=== PATIENT | male | born 1965 | race Caucasian/White ===

== ENCOUNTER → 2019-04-29 14:46 | Outpatient (BNVA) | payer BC, SELFPAY | PROVIDERS: Family Provider Nurse Practitioner Family; PCP Nurse Practitioner Family; Visit Provider Nurse Practitioner Family | DX: J06.9 Acute upper respiratory infection, unspecified (principal); E11.9 Type 2 diabetes mellitus without complications; R05 Cough; M25.569 Pain in unspecified knee | CPT/HCPCS: 36415; 80053; 83036 ==

== ENCOUNTER 2019-10-16 07:45 | Outpatient (CLI) | payer SELFPAY ==
--- NOTE | 2019-10-16 07:53 | XRR_ITS ---
PROCEDURE INFORMATION: Exam: XR Complete Acute Abdomen Series Exam date and time: 10/16/2019 8:18 AM Age: 54 years old Clinical indication: Localized; Right lower quadrant (rlq); Prior surgery; Surgery date: 6+ months; Surgery type: Hernia; Patient HX: Hypoactive bowel sounds. Abdominal pain rlq TECHNIQUE: Imaging protocol: XR complete acute abdomen series, including 2 or more views of the abdomen and a single view chest. COMPARISON: CT abdomen pelvis w con* [id number] 11/03/2015 3:16 PM FINDINGS: Lungs: No acute airspace disease. Pleural space: No pleural effusion. Heart/Mediastinum: Epicardial fat, without cardiomegaly. Gastrointestinal tract: Prominent stool, with paucity of bowel gas. Bones/joints: Mild degenerative change. Soft tissues: Prostate calcifications. XR/XR acute abdomen series [id number] IMPRESSION: 1. No acute airspace or pleural disease. 2. Prominent stool, with paucity of bowel gas.
--- NOTE | 2019-10-16 08:00 | US_ITS ---
WS: [id number] Complete ABDOMINAL ULTRASOUND HISTORY: abdominal pain COMPARISON: None available. Liver: 23.1 cm in length. Markedly enlarged liver. Decreased echogenicity throughout the liver from h epatic steatosis. The entire liver is not very well visualized. No masses or bile duct dilatation kathryn reciated. Gallbladder: Normally distended gallbladder. There is a tiny echogenic focus in the nondependent port ion of the gallbladder which may be a wall calcification or cholesterol crystal. Gallbladder wall thickness: 0.2 cm. Pancreas: Not visualized. CBD: 0.5 cm. Right kidney: 12.7 cm x 5.9 cm x 6.4 cm. Normal size kidney. Simple cyst upper pole measures 2.9 x 2 .1 x 1.7 cm. Left kidney: 14.1 cm x 6.3 cm x 6.6 cm. No mass, cortical thickening or hydronephrosis. Spleen: Normal size and echogenicity. Abdominal aorta and IVC are within normal limits. No ascites. US/US abdomen complete* [id number] IMPRESSION: 1. Marked hepatomegaly and hepatic steatosis. 2. No cholelithiasis. 3. Simple cyst RIGHT kidney.
[2019-10-16 08:59] LABS: Basophils # 0.1 10^3/uL (0.0-0.1); Basophils % 0.8 %; Eosinophils # 0.2 10^3/uL (0.0-0.8); Hematocrit 44.7 % (42.0-52.0); Hemoglobin 14.7 g/dL (11.7-16.6); Lymphocytes # 1.5 10^3/uL (0.8-4.8); Lymphocytes % 20.3 %; Mean Corpuscular HGB Conc 32.9 g/dL (30.0-36.0); Mean Corpuscular Hemoglobin 29.9 pg (28.0-34.0); Mean Corpuscular Volume 90.9 fL (80-94); Mean Platelet Volume 11.1 fL (7.4-10.4); Monocytes # 0.8 10^3/uL (0.2-0.9); Monocytes % 11.3 %; Neutrophils # 4.83 10^3/uL (1.8-7.7); Neutrophils % 64.8 %; Nucleated Red Blood Cells % 0 %; Platelet Count 273 10^3/cmm (130-400); Red Blood Count 4.92 10^6/uL (4.1-5.3); Red Cell Distribution Width 12.9 % (12.1-15.1); White Blood Count 7.5 10^3/uL (4.0-10.0)
[2019-10-16 09:07] LABS: Estmated Average Glucose 166; Hemoglobin A1C 7.4 % (4.0-6.0)
[2019-10-16 10:01] LABS: Alanine Aminotransferase 56 U/L (0-41); Albumin Level 4.2 g/dL (3.5-5.2); Alkaline Phosphatase 58 IU/L (40-130); Anion Gap 20.5 (5-19); Aspartate Amino Transferase 24 U/L (0-40); Blood Urea Nitrogen 13 mg/dL (6-20); Calcium 8.9 mg/dL (8.5-10.5); Carbon Dioxide 21 mmol/L (22-29); Chloride 96 mmol/L (98-107); Chol HDL Ratio 4.33 mg/dL (1.0-5.00); Cholesterol 173 mg/dL (0-200); Glucose 136 mg/dL (65-115); HDL Cholesterol 40 mg/dL (60-100); LDL Cholesterol Calculated 72 mg/dL (50-129); Osmolality Calculated 276 mOsm/kg (285-295); Potassium 3.5 mmol/L (3.5-5.1); Sodium 134 mmol/L (136-145); Thyroid Stimulating Hormone 0.99 uIU/mL (0.27-4.20); Total Bilirubin 0.3 mg/dL (0.15-1.2); Total Protein 7.2 g/dL (6.6-8.7); Triglycerides 305 mg/dL (0-150)
[2019-10-16 10:21] LABS: Bilirubin Urine Neg (NEGATIVE); Blood Urine Neg (Negative); Glucose Urine UA Norm (Normal); Ketones Urine Negative (Negative); Leukocyte Esterase Urine Negative (Negative); Nitrate Urine Negative (Negative); Protein Urine Neg (Negative); Urine Appearance Clear (CLEAR); Urine Color Yellow (Yellow); Urobilinogen Urine Norm (Negative); pH Urine 5 (5-7)
[2019-10-16 10:23] LABS: Add Urine Culture? No; Amorphous Sediment Urine TRACE; Bacteria Urine TRACE; RBC Urine 0-4 /hpf (0-2); Squamous Epithelial Cell Urine 0-4 (0-5); WBC Urine 0-4 /hpf (0-5)
== END 2019-10-16 07:46 | disposition home or self-care (01) ==
PROVIDERS: PCP Nurse Practitioner Family; Visit Provider Nurse Practitioner Family
DX: R10.9 Unspecified abdominal pain (principal); R16.0 Hepatomegaly, not elsewhere classified; K76.0 Fatty (change of) liver, not elsewhere classified; N28.1 Cyst of kidney, acquired
CPT/HCPCS: 74022; 76700; 80053; 80061; 81001; 83036; 84443; 85025

== ENCOUNTER → 2020-03-29 08:57 | Outpatient (BNVA) | payer SELFPAY | PROVIDERS: PCP Nurse Practitioner Family; Visit Provider Nurse Practitioner Family | DX: G89.29 Other chronic pain (principal); E11.9 Type 2 diabetes mellitus without complications; F41.8 Other specified anxiety disorders; J22 Unspecified acute lower respiratory infection; E78.2 Mixed hyperlipidemia | CPT/HCPCS: 80053; 83036 ==

== ENCOUNTER → 2020-04-28 10:44 | Outpatient (BNVA) | payer OTHER, SELFPAY | PROVIDERS: PCP Nurse Practitioner Family; Visit Provider Family Medicine | DX: Z20.822 Contact with and (suspected) exposure to COVID-19 (principal) | CPT/HCPCS: 87635 ==

== ENCOUNTER → 2021-03-29 11:49 | Outpatient (BNVA) | payer SELFPAY | PROVIDERS: PCP Nurse Practitioner Family; Visit Provider Family Medicine | DX: R06.02 Shortness of breath (principal) | CPT/HCPCS: 87400; 87635 ==

== ENCOUNTER → 2021-06-20 14:42 | Outpatient (BNVA) | payer SELFPAY | PROVIDERS: PCP Nurse Practitioner Family; Visit Provider Nurse Practitioner Family | DX: E11.9 Type 2 diabetes mellitus without complications (principal); I10 Essential (primary) hypertension; E55.9 Vitamin D deficiency, unspecified; Z12.5 Encounter for screening for malignant neoplasm of prostate | CPT/HCPCS: 71046; 80053; 80061; 81003; 82306; 83036; 83880; 84443; 85025; G0103 ==

== ENCOUNTER 2021-07-18 15:10 | Outpatient (CLI) | payer SELFPAY ==
[2021-07-18 16:15] LABS: Urine Appearance Clear (CLEAR); Urine Color Yellow (Yellow); pH Urine 5 (5-7)
[2021-07-18 16:16] LABS: Bilirubin Urine Neg (Negative); Blood Urine Neg (Negative); Glucose Urine UA 4+ (Normal); Ketones Urine 1+ (Negative); Leukocyte Esterase Urine Negative (Negative); Nitrate Urine Negative (Negative); Protein Urine Neg (Negative); Specific Gravity, Urine 1.015 (1.005-1.030); Urobilinogen Urine Norm (Negative)
[2021-07-18 16:19] LABS: RBC Urine 0-4 /hpf (0-2); Squamous Epithelial Cell Urine 0-4 /hpf (0-5); WBC Urine 0-4 /hpf (0-5)
[2021-07-18 16:20] LABS: Add Urine Culture? No; Mucus Urine N /hpf; Other Casts Urine N /lpf; Other Crystals Urine N /hpf; Other Sediment, Urine N; Renal Epithelial Cells Urine N /hpf; Uric Acid Crystals Urine N /hpf
== END 2021-07-18 15:11 | disposition home or self-care (01) ==
PROVIDERS: PCP Nurse Practitioner Family; Visit Provider Nurse Practitioner Family
DX: E11.9 Type 2 diabetes mellitus without complications (principal)
CPT/HCPCS: 36415; 81001

== ENCOUNTER → 2021-08-16 15:03 | Outpatient (BNVA) | payer SELFPAY | PROVIDERS: PCP Nurse Practitioner Family; Visit Provider Internal Medicine Pulmonary Disease | DX: G47.30 Sleep apnea, unspecified (principal); T78.40XA Allergy, unspecified, initial encounter; R06.02 Shortness of breath | CPT/HCPCS: 80053; 82785; 83880; 85025; 86003; 86141 ==

== ENCOUNTER 2021-10-25 12:59 | Outpatient (CLI) | payer MEDICARE, SELFPAY ==
--- NOTE | 2021-10-25 14:01 | XR_ITS ---
WS: [id number] Left leg including the tibia and fibula, AP and lateral views, 10/25/2021 Clinical Data: M79.89 - Other specified soft tissue disorders Comparison: None. Findings: No fractures or dislocations are seen. The tibia and fibula are intact. The soft tissues are normal. XR/XR tibia fibula LT 2V [id number] Impression: Negative for left leg fracture.
--- NOTE | 2021-10-25 15:00 | USCV_ITS ---
Sunshine Charles Age: 56 Gender: M : 1965 Exam Date: 10/25/2021 13:20 Ordering Phys: Sourav Cole MD Technologist: Wanda Burrows Exam Location: [facility] [place] Indication: Trauma to lower left leg laterally HISTORY: Trauma to Left lower lateral leg ..below knee PROCEDURES: Venous duplex imaging was performed in only the left lower extremity. The following venous structures were evaluated: common femoral vein, profunda vein, proximal portion of the greater saphenous vein, superficial femoral vein, and the popliteal vein. In addition, the posterior tibial and peroneal trunk were evaluated. Serial compression, augmentation maneuvers, and spectral Doppler flow evaluation were performed. Area of interest on later lower leg studied. Resolving hematoma observed FINDINGS: Normal 2-D Doppler and augmentation and compressibility throughout the lower extremity venous structures. Additional imaging through the proximal calf veins also reveals no thrombus. Limited evaluation of the greater saphenous vein is patent with no thrombus.. Resolving hematoma Lt lower leg laterally. CONCLUSIONS No evidence of left lower extremity DVT. Resolving hematoma in the area of trauma 6.3 x 2.8 x 1.4cm Stephane Drew MD (Electronically Signed) Final Date: 25 October 2021 16:27 S
== END 2021-10-25 13:00 | disposition home or self-care (01) ==
PROVIDERS: PCP Family Medicine; Visit Provider Family Medicine
DX: M79.89 Other specified soft tissue disorders (principal); R07.9 Chest pain, unspecified; R06.00 Dyspnea, unspecified; I10 Essential (primary) hypertension; E78.2 Mixed hyperlipidemia; E11.9 Type 2 diabetes mellitus without complications; Z79.84 Long term (current) use of oral hypoglycemic drugs; G47.30 Sleep apnea, unspecified; R00.0 Tachycardia, unspecified
CPT/HCPCS: 73590; 93005; 93971; 99214

== ENCOUNTER → 2021-11-23 10:39 | Outpatient (BNVA) | payer MEDICARE, SELFPAY | PROVIDERS: PCP Family Medicine; Visit Provider Family Medicine | DX: G89.29 Other chronic pain (principal); E11.40 Type 2 diabetes mellitus with diabetic neuropathy, unspecified; Z12.11 Encounter for screening for malignant neoplasm of colon; M54.9 Dorsalgia, unspecified; I10 Essential (primary) hypertension; E78.2 Mixed hyperlipidemia; K21.9 Gastro-esophageal reflux disease without esophagitis | CPT/HCPCS: 80053; 80061; 83036; 84443; 85025 ==

== ENCOUNTER → 2021-12-06 09:32 | Outpatient (BNVA) | payer MEDICARE, SELFPAY | PROVIDERS: PCP Family Medicine; Visit Provider Internal Medicine Pulmonary Disease | DX: R06.00 Dyspnea, unspecified (principal); T78.40XA Allergy, unspecified, initial encounter; E66.9 Obesity, unspecified; E11.9 Type 2 diabetes mellitus without complications; M79.89 Other specified soft tissue disorders; Z68.41 Body mass index [BMI] 40.0-44.9, adult; Z87.891 Personal history of nicotine dependence; Z77.22 Contact with and (suspected) exposure to environmental tobacco smoke (acute) (chronic); Z57.2 Occupational exposure to dust | CPT/HCPCS: 99214 ==

== ENCOUNTER → 2021-12-07 09:43 | Outpatient (BNVA) | payer MEDICARE, SELFPAY | PROVIDERS: PCP Family Medicine; Visit Provider Surgery | DX: Z12.11 Encounter for screening for malignant neoplasm of colon (principal) | CPT/HCPCS: 99024 ==

== ENCOUNTER → 2022-01-24 09:20 | Outpatient (BNVA) | payer MEDICARE, SELFPAY | PROVIDERS: PCP Family Medicine; Visit Provider Internal Medicine Cardiovascular Disease | DX: I10 Essential (primary) hypertension (principal); E11.9 Type 2 diabetes mellitus without complications; Z79.84 Long term (current) use of oral hypoglycemic drugs; G47.30 Sleep apnea, unspecified; G47.10 Hypersomnia, unspecified; E78.2 Mixed hyperlipidemia; R06.00 Dyspnea, unspecified; Z87.891 Personal history of nicotine dependence | CPT/HCPCS: 99214 ==

== ENCOUNTER → 2022-01-31 11:22 | Outpatient (BNVA) | payer MEDICARE, SELFPAY | PROVIDERS: PCP Family Medicine; Visit Provider Internal Medicine Pulmonary Disease | DX: R06.00 Dyspnea, unspecified (principal); T78.40XA Allergy, unspecified, initial encounter; R22.43 Localized swelling, mass and lump, lower limb, bilateral; E66.9 Obesity, unspecified; E11.9 Type 2 diabetes mellitus without complications; Z57.2 Occupational exposure to dust; Z87.891 Personal history of nicotine dependence; Z68.41 Body mass index [BMI] 40.0-44.9, adult; Z79.84 Long term (current) use of oral hypoglycemic drugs; I10 Essential (primary) hypertension; E78.5 Hyperlipidemia, unspecified | CPT/HCPCS: 99214 ==

== ENCOUNTER 2022-02-07 07:55 | Outpatient (CLI) | payer MEDICARE, SELFPAY ==
--- NOTE | 2022-02-07 08:22 | ECG_ITS ---
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 Interpretive Statements NAME OF STUDY: LEXISCAN SESTAMIBI STRESS TEST INDICATION: Chest Pain, PROCEDURE: At the baseline, the EKG revealed normal sinus rhythm with diffuse T wave changes. The baseline heart was 72 bpm with a blood pressue of 142/82 mm of Hg Lexiscan was infused over a period of 20 seconds. A total of 0.4 milligrams of Lexiscan was infused. The stress phase was continued for a total of 5 minutes. Heart rate at the end of the stress phase was 84 bpm with a blood pressure 129/75 mm of Hg. The EKG at the peak infusion revealed no significant changes. Sestamibi was injected 20 seconds after the Lexiscan infusion. Heart rate at the end of the recovery phase was 83 bpm with a blood pressure of 135/76 mm of Hg. CONCLUSION: 1. No significant EKG changes with the LexiScan infusion 2. No LexiScan induced chest pain or cardiac arrhythmia 3. Normal blood pressure and heart rate response 4. Sestamibi/sestamibi perfusion scan pending; see separate report. Electronically Signed On 02-11-2022 18:16:57 WEEDER THINNER by James Babb M.D. [id number]
--- NOTE | 2022-02-07 08:23 | NMCV_ITS ---
NM [place] perf SPECT r/s* [id number] Sunshine Charles Age: 57 Gender: M : 1965 Exam Date: 02/07/2022 08:23 Ordering Phys: James Babb MD ([email or web address]) Technologist: EZEQUIEL Liriano Exam Location: [facility] Indications: CORONARY ANGIOPLASTY STATUS STRESS TEST Please see separate stress test report in [facility] for full findings IMAGE PROTOCOL Rest/Stress 1 Lexiscan Day Radiopharmaceutical Dose (mCi) Administration Site Administered by Rest: Tc-99m 9.6 IV EZEQUIEL Hdz Sestamibi Stress:Tc-99m 31.5 IV EZEQUIEL Hdz Sestamibi Rest: 07-Feb-2022 60 Discovery 630 Stress: 07-Feb-2022 30 Discovery 630 0.4mg Lexiscan. Images obtained in supine and prone position. SPECT RESULTS Technical Quality: Excellent Raw Data Analysis: Normal Image Corrections: No attenuation or motion correction applied Summed Stress Score: 6 Summed Rest Score: 14 Summed Difference Score: 0 PERFUSION FINDINGS Moderate area of moderately decreased size uptake in the basal and mid inferior, basal inferolateral and apical lateral regions. No significant reversibility was noted of these regions FUNCTIONAL RESULTS (calculated via Gated SPECT) Stress Image LV EF (%): 35 Stress EDV (mL):215 TID: 1.09 Stress ESV (mL):140 FUNCTIONAL FINDINGS: Segmental wall motion analysis revealed moderate diffuse hypokinesia of the left ventricle. IMPRESSIONS 1. Myocardial perfusion imaging revealing moderate area of persistent decreased tracer uptake in the inferior, inferolateral and apical lateral regions, suggestive of myocardial scarring. 2. Moderately diminished LV ejection fraction of 35%. 3. LV wall motion analysis revealing diffuse hypokinesia of the left ventricle 4. Moderately dilated LV cavity with an end-systolic volume of 140 mL No similar previous studies are available for comparison No significant coronary ischemia, based on the above findings Dr James Babb MD FACC (Electronically Signed) Final Date: 07 February 2022 23:30 S
[2022-02-07 09:40] VITALS: BMI 43.2
[2022-02-07] MEDS: regadenoson 0.4 Mg/5 ml Syringe IVP (10:06)
[2022-02-07 10:35] VITALS: BP 135/76; PULSE 81
== END 2022-02-07 07:56 | disposition home or self-care (01) ==
LOC: CDL 08:03
PROVIDERS: PCP Family Medicine; Visit Provider Internal Medicine Cardiovascular Disease
DX: R07.9 Chest pain, unspecified (principal); R06.02 Shortness of breath; Z98.61 Coronary angioplasty status
CPT/HCPCS: 36415; 78452; 93017; 96374; A9500; J2785

== ENCOUNTER 2022-02-09 08:55 | Day surgery (SDC) | payer MEDICARE, SELFPAY ==
[2022-02-08 08:26] VITALS: BMI 41.8
[2022-02-09 09:45] VITALS: BP 160/77; PULSE 46; RESP 20; TEMP 36.5; O2SAT 97
[2022-02-09] MEDS: sodium chloride 0.9% 1,000 ML 30 ML IV (09:57)
--- NOTE | 2022-02-09 10:00 | W.PM.OPSFHP ---
Same Day Surgery H&P Indication for Procedure/HPI DATE OF PROCEDURE: February 09, 2022 CHIEF COMPLAINT/INDICATIONFOR SURGICAL PROCEDURE: Screening colonoscopy PREOP DIAGNOSIS: Screening colonoscopy PLANNED PROCEDURE: Operation Date: 02/09/22 11:00 Proposed Procedures p Colonoscopy 35405,Z12.11(Not Applicable) - Dl Nelson MD This is a pleasant 57 years old gentleman referred to my practice for screening colonoscopy. No personal history of bleeding per rectum or colon polyps or colon cancer yet the patient reports that his brother had colon cancer age of 26 and he had 2 surgeries and unfortunately .. No change in bowel movements and no change in the caliber of the stool. ROS All systems have been reviewed negative except as for the above or per problem list. Medications/Allergies* Home Medications Medication Instructions Recorded Confirmed Type aspirin 81 mg tablet,delayed 81 mg PO DAILY 10/11/21 02/08/22 History release (Adult Low Dose Aspirin) linaclotide 290 mcg capsule 290 mcg PO DAILY PRN Constipation 10/11/21 02/08/22 History (Linzess) doxycycline hyclate 100 mg tablet 100 mg PO BID PRN tick fever 10/25/21 02/08/22 History citalopram 10 mg tablet 20 mg PO DAILY 02/08/22 02/08/22 History furosemide 20 mg tablet 20 mg PO .PRN PRN swelling 02/08/22 02/08/22 History glyburide 5 mg tablet 15 mg PO DAILY 02/08/22 02/08/22 History meloxicam 15 mg tablet 15 mg PO DAILY 02/08/22 02/08/22 History omega-3 acid ethyl esters 1 gram 1 cap PO DAILY 02/08/22 02/08/22 History capsule rosuvastatin 5 mg tablet 5 mg PO DAILY 02/08/22 02/08/22 History sitagliptin 50 mg tablet (Januvia) 50 mg PO DAILY 02/08/22 02/08/22 History tamsulosin 0.4 mg capsule 0.8 mg PO DAILY 02/08/22 02/08/22 History telmisartan 40 mg tablet 40 mg PO DAILY 02/08/22 02/08/22 History metformin 1,000 mg tablet 1,000 mg PO BID 02/09/22 History Allergies/Adverse Reactions Allergy/AdvReac Type Severity Reaction Status Date / Time No Known Allergies Allergy Verified 02/09/22 10:01 Pertinent History/Comorbid Conditions* Medical History (Updated 01/24/22 @ 13:50 by James Babb MD) Bilateral primary osteoarthritis of knee Chronic pain Depression with anxiety DM type 2 (diabetes mellitus, type 2) Erectile dysfunction Essential hypertension GERD (gastroesophageal reflux disease) Hyperlipidemia Lower respiratory tract infection Mixed hyperlipidemia Peripheral edema Prostate cancer screening Shortness of breath Sleep apnea Could not afford CPAP machine Vitamin D deficiency Family History (Updated 10/25/21 @ 11:05 by Jodi Odonnell RN) Diabetes Family/Other Mother CAD (coronary artery disease) Father, Onset Age: 60 CHF & [place] Cancer Family/Other Denies family history of Clotting disorder Dementia Chronic kidney disease (CKD) Suicide Anesthesia complication Bleeding disorder Lung disease Stroke Social History Smoking and tobacco status: former smoker Quit status (tobacco): has quit using tobacco Year quit tobacco: 40 years ago Former quit date comment: 5-6 cigarettes/day or less Second hand smoke exposure: No Smoking risk assessment/counseling performed?: No Alcohol intake: never Desire information about alcohol rehabilitation?: No Counseling given: No Desire information about substance/drug rehabilitation?: No Counseling given: No Pertinent Exam Findings alert, oriented x 3, clear to auscultation bilaterally, regular rate & rhythm and procedure specific exam findings (Abdominal exam nontender nondistended soft/previous scar of umbilical herni) Recommendations Surgery/Procedure today (Colonoscopy with possible biopsy) Other Plans: Plan of care; After thorough history and physical examination and reviewing the chart, plan to perform screening colonoscopy. I discussed with the patient in details the risks,benefits,alternatives and indications.The risk of aspiration, bleeding, soft tissue injury, perforation of the colon ,missed lesions and other potential concomitant complications were explained to the patient in details,also the potential need for Laproscoy/Laparotomy to repair any related complications including but not limited to colectomy and or Closotomy.The patient understood this well and did agree to proceed. Rationale was carefully and clearly discussed with the patient.Appropriate informed consent have been reviewed and signed All questions have been answered and all concerns have been addressed to patient's satisfaction. 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
[2022-02-09 10:05] LABS: Glucose Point of Care 94 mg/dL (70-110)
--- NOTE | 2022-02-09 10:27 | ANES.PREANE2 ---
Pre-Anesthetic Assessment Height/Weight: Height 1.8 m Weight 136.078 kg Temp Pulse Resp BP Pulse Ox O2 Del Method 97.7 F 46 L 20 H 160/77 97 02/09/22 09:45 02/09/22 09:45 02/09/22 09:45 02/09/22 09:45 02/09/22 09:45 02/09/22 09:45 Preop Diagnosis: Screening colonoscopy Operation Date: 02/09/22 11:00 Proposed Procedures p Colonoscopy 65038,Z12.11(Not Applicable) - Dl Nelson MD Was Beta Marcella taken within 24 hours: N/A Last intake: Intake Last Liquid Date 02/08/22 Last Liquid Time 20:00 Last Solid Date 01/28/22 Last Solid Time 17:00 Social Alcohol and Tobacco chews Exam alert, oriented x 3, clear to auscultation bilaterally and regular rate & rhythm History/ROS No significant history except as noted and No significant complaints Pulmonary Exertional Dyspnea, Sleep Apnea and Shortness of Breath CV/HEM Hypertension (EF 35%) None reported Hepatic None reported GI None reported Metabolic Diabetes Mellitus, Hyperlipidemia and Morbid Obesity [facility] [place] Osteoarthritis/DJD Neuropsych None reported Anesthetic Plan ASA status: 4 Anesthesia: Anesthesia Evaluation and MAC Risk of > 500 ml blood loss (7ml/kg in children): No Medications/Allergies Home Medications Medication Instructions Recorded Confirmed Last Taken Type aspirin 81 mg tablet,delayed 81 mg PO DAILY 10/11/21 02/08/22 02/07/22 History release (Adult Low Dose Aspirin) linaclotide 290 mcg capsule 290 mcg PO DAILY PRN Constipation 10/11/21 02/08/22 02/07/22 History (Linzess) doxycycline hyclate 100 mg tablet 100 mg PO BID PRN tick fever 10/25/21 02/08/22 02/07/22 History empagliflozin 25 mg tablet 25 mg PO DAILY #90 tabs 11/14/21 02/08/22 02/07/22 Rx (Jardiance) gabapentin 100 mg capsule 100 mg PO TID #180 caps 11/14/21 02/08/22 02/08/22 Rx semaglutide 0.25 mg or 0.5 mg (2 0.5 mg (0.4 mL) SUBCUT .weekly #6 11/14/21 02/08/22 02/07/22 Rx mg/1.5 mL) subcutaneous pen mL injector (Ozempic) albuterol sulfate 90 mcg/actuation 1 inh inhalation QID PRN shortness 11/21/21 02/08/22 02/07/22 Rx aerosol inhaler of breath or wheezing #8.5 grams budesonide-formoterol HFA 80 1 puff inhalation BID #10.2 grams 12/06/21 02/08/22 02/07/22 Rx mcg-4.5 mcg/actuation aerosol inhaler (Symbicort) alprazolam 0.25 mg tablet 0.25 mg PO BID PRN anxiety #60 tabs 01/22/22 02/08/22 02/07/22 Rx tramadol 50 mg tablet 50 mg PO Q12H PRN pain 30 days #60 01/22/22 02/08/22 02/08/22 Rx tabs metoprolol succinate 25 mg 25 mg PO DAILY #30 tabs 01/24/22 02/08/22 02/07/22 Rx tablet,extended release 24 hr nifedipine 90 mg tablet,extended 90 mg PO DAILY #90 tabs 02/07/22 02/08/22 02/09/22 07:00 Rx release 24 hr citalopram 10 mg tablet 20 mg PO DAILY 02/08/22 02/08/22 02/07/22 History furosemide 20 mg tablet 20 mg PO .PRN PRN swelling 02/08/22 02/08/22 02/07/22 History glyburide 5 mg tablet 15 mg PO DAILY 02/08/22 02/08/22 02/07/22 History meloxicam 15 mg tablet 15 mg PO DAILY 02/08/22 02/08/22 02/07/22 History omega-3 acid ethyl esters 1 gram 1 cap PO DAILY 02/08/22 02/08/22 02/07/22 History capsule rosuvastatin 5 mg tablet 5 mg PO DAILY 02/08/22 02/08/22 02/07/22 History sitagliptin 50 mg tablet (Januvia) 50 mg PO DAILY 02/08/22 02/08/22 Unknown History tamsulosin 0.4 mg capsule 0.8 mg PO DAILY 02/08/22 02/08/22 02/07/22 History telmisartan 40 mg tablet 40 mg PO DAILY 1102/08/22 02/07/22 History metformin 1,000 mg tablet 1,000 mg PO BID 02/09/22 02/07/22 History Allergies Allergy/AdvReac Type Severity Reaction Status Date / Time No Known Allergies Allergy Verified 02/09/22 10:01 Current Medications Generic Name Dose Route Start Last Admin Trade Name Windy PRN Reason Stop Dose Admin Sodium Chloride 1,000 mls @ 30 mls/hr 02/09/22 09:15 02/09/22 09:57 Sodium Chloride 0.9% IV 02/10/22 09:14 30 mls/hr .Q24H ALMA DELIA Administration PFSH Anesthesia Medical History Bilateral primary osteoarthritis of knee Chronic pain Depression with anxiety DM type 2 (diabetes mellitus, type 2) Erectile dysfunction Essential hypertension GERD (gastroesophageal reflux disease) Hyperlipidemia Lower respiratory tract infection Mixed hyperlipidemia Peripheral edema Prostate cancer screening Shortness of breath Sleep apnea Could not afford CPAP machine Vitamin D deficiency Family History Father CAD (coronary artery disease), Onset Age: 60 CHF & [place] Family/Other Cancer Diabetes Mother Diabetes Denies family history of Clotting disorder Dementia Chronic kidney disease (CKD) Suicide Anesthesia complication Bleeding disorder Lung disease Stroke Social History Smoking and tobacco status: former smoker Quit status (tobacco): has quit using tobacco Year quit tobacco: 40 years ago Former quit date comment: 5-6 cigarettes/day or less Second hand smoke exposure: No Smoking risk assessment/counseling performed?: No Alcohol intake: never Desire information about alcohol rehabilitation?: No Counseling given: No Desire information about substance/drug rehabilitation?: No Counseling given: No Data Anesthesia Cardiac Studies: Sestamibi Stress Test (Cardiology) 02/07/22
[2022-02-09 11:15] VITALS: BP 153/90; PULSE 81; RESP 20; TEMP 36.1; O2SAT 92
[2022-02-09 11:24] VITALS: BP 156/89; PULSE 84; RESP 18; O2SAT 94
[2022-02-09 11:33] VITALS: BP 137/76; PULSE 78; RESP 18; O2SAT 94
--- NOTE | 2022-02-09 12:42 | ANE.PACU2 ---
Inpatient post-anesthesia follow up: Airway intact: Yes Vital signs: Temperature 97 F Pulse Rate 78 Respiratory Rate 18 Blood Pressure 137/76 Pulse Oximetry 94 Oxygen Delivery Me thod Room Air Oxygen Flow Rate 5 Fraction of Inspir ed Oxygen Hydration adequate: Yes Nausea and vomiting: No Pain level: 1 Mental status: Baseline
== END 2022-02-09 11:40 | disposition home or self-care (01) ==
PROVIDERS: PCP Family Medicine; Visit Provider Surgery
PROC: 0DJD8ZZ Inspection of Lower Intestinal Tract, Via Natural or Artificial Opening Endoscopic (ICD-10-PCS; CPT 45378; principal; 2022-02-09 11:00)
DX: Z12.11 Encounter for screening for malignant neoplasm of colon (principal); K57.30 Diverticulosis of large intestine without perforation or abscess without bleeding; Z79.82 Long term (current) use of aspirin; M17.0 Bilateral primary osteoarthritis of knee; E11.9 Type 2 diabetes mellitus without complications; I10 Essential (primary) hypertension; K21.9 Gastro-esophageal reflux disease without esophagitis; E78.2 Mixed hyperlipidemia; G47.30 Sleep apnea, unspecified; Z79.84 Long term (current) use of oral hypoglycemic drugs; Z87.891 Personal history of nicotine dependence
CPT/HCPCS: 36416; 82962; G0121; J7030

== ENCOUNTER 2022-02-14 01:00 | Outpatient (CLI) | payer MEDICARE, SELFPAY | END 2022-02-14 23:00 | disposition home or self-care (01) | LOC: RT 03-26 15:35 | PROVIDERS: PCP Family Medicine; Visit Provider Internal Medicine Pulmonary Disease | DX: J98.9 Respiratory disorder, unspecified (principal) | CPT/HCPCS: J7613 ==

== ENCOUNTER 2022-02-14 06:03 | Outpatient (CLI) | payer MEDICARE, SELFPAY ==
--- NOTE | 2022-02-14 06:15 | USCV_ITS ---
Sunshine Charles Age: 57 Gender: M : 1965 Exam Date: 02/14/2022 06:22 Ordering Phys: James Babb MD ([email or web address]) Technologist: [place] [facility] [place]: short of breath BP: 147 / 91 HR: 80 Rhythm: Sinus Technical Quality: Adequate MEASUREMENTS (Male / Female) Normal Values 2D ECHO LVOT Diameter 2.9 cm LV Ejection Fraction MOD 2C 62.4 % LV Ejection Fraction 2C AL 61.8 % LA Diameter 4.1 cm Aorta at Sinotubular Diameter 3.4 cm IVC Diameter 1.6 cm M-MODE Aortic Annulus Diameter 4.0 cm LA Ao Ratio MM 1.0 MV E Point Septal Separation 1.5 cm DOPPLER AV Peak Velocity 134.0 cm/s LVOT Peak Velocity 81.0 cm/s AV Area Cont Eq vti 4.1 cm squared AV Area Cont Eq pk 3.9 cm squared MV Area PHT 2.7 cm squared Mitral E to A Ratio 0.9 MV E' Velocity 43.0 cm/s Mitral E to MV E' Ratio 9.2 Mitral E to LV E' Lateral Ratio 7.9 Mitral E to LV E' Septal Ratio 11.0 TR Peak Velocity 234.0 cm/s TR Peak Gradient 21.9 mmHg TV Peak E Velocity 102.0 cm/s Right Atrial Pressure 3.0 mmHg Pulmonary Artery Systolic Pressu 24.9 mmHg RV Acceleration Time 0.2 s FINDINGS Left Ventricle Normal left ventricular size and systolic function, EF 56 %. No regional wall motion abnormalities. Grade I/IV diastolic dysfunction (abnormal relaxation filling pattern), normal to mildly elevated filling pressures. Right Ventricle The right ventricle is normal in size and function. Right Atrium The right atrium is normal in size. Left Atrium The left atrium is normal in size. Mitral Valve No gross abnormalities noted. Aortic Valve Echodensities on the noncoronary cusp of the aortic valve, suggesting calcification/healed vegetations. Mild aortic regurgitation Tricuspid Valve Trace tricuspid valve regurgitation. Pulmonic Valve Not visualized well Pericardium Normal pericardium without effusion. Aorta Normal ascending aorta dimension. IVC The inferior vena cava appears normal. CONCLUSIONS Normal left ventricular size and systolic function, EF 56 %. No regional wall motion abnormalities. Grade I/IV diastolic dysfunction (abnormal relaxation filling pattern), normal to mildly elevated filling pressures. Echodensities on the noncoronary cusp of the aortic valve, suggesting calcification/healed vegetations. Mild aortic regurgitation. Trace tricuspid valve regurgitation. Estimated pulmonary artery peak systolic pressure 25 mmHg No similar previous studies are available for comparison Consider LIGIA, to better evaluate the aortic valve abnormalities Dr James Babb MD FACC (Electronically Signed) Final Date: 15 February 2022 07:48 S
== END 2022-02-14 06:04 | disposition home or self-care (01) ==
PROVIDERS: PCP Family Medicine; Visit Provider Internal Medicine Pulmonary Disease
DX: R06.02 Shortness of breath (principal); I08.2 Rheumatic disorders of both aortic and tricuspid valves
CPT/HCPCS: 93306; 94060; 94618; 94726; 94729

== ENCOUNTER → 2022-02-22 15:38 | Outpatient (BNVA) | payer MEDICARE, SELFPAY | PROVIDERS: PCP Family Medicine; Visit Provider Surgery | DX: Z09 Encounter for follow-up examination after completed treatment for conditions other than malignant neoplasm (principal); K57.31 Diverticulosis of large intestine without perforation or abscess with bleeding | CPT/HCPCS: 99212 ==

== ENCOUNTER 2022-03-02 10:02 | Day surgery (SDC) | payer MEDICARE, SELFPAY ==
[2022-03-01 09:30] VITALS: BMI 43.0
--- NOTE | 2022-03-02 10:17 | USCV_ITS ---
Sunshine Charles Age: 57 Gender: M : 1965 Exam Date: 03/02/2022 12:16 Ordering Phys: James Babb MD ([email or web address]) Technologist: KEYA [place] [facility] [place]ication: EVAL FOR VEGTATION BP: 146 / 82 HR: Rhythm: Sinus Technical Quality: Good MEASUREMENTS (Male / Female) Normal Values Medications Patient given IV sedation by anesthesia service, for details please refer to the anesthesia report. Complications None. Proc. Components The patient was brought to the LIGIA examination room in a fasting state after obtaining an informed consent. The LIGIA probe was passed into the posterior pharynx , mid-esophagus and distal esophagus, FINDINGS Left Ventricle Diffuse hypokinesia of the septum with ejection fraction of 45 to 50% Right Ventricle Normal size and ejection fraction Right Atrium Normal size Left Atrium Normal left atrial size. LA Appendage Normal left atrial appendage. Normal flow velocities in the left atrial appendage. IA Septum Normal interatrial septum. No evidence of ASD or patent foramen ovale, based on the color-flow Doppler examination and by saline contrast injection Mitral Valve Trace mitral valve regurgitation. Aortic Valve The aortic valve is found to be tricuspid with the thickening of the leaflet margins mostly in the left coronary and the noncoronary cusp with no masses or vegetations. Mild to moderate aortic regurgitation was noted by color-flow Doppler examination. Tricuspid Valve Trace tricuspid valve regurgitation. Pulmonic Valve No morphologic abnormalities were noted in the valve Pericardium No pericardial effusion. Aorta Aortic root was of normal size. Diffuse plaques where noted in the arch and the descending aorta CONCLUSIONS The aortic valve was found to be tricuspid with thickening of the leaflet margins mostly involving the left coronary and the noncoronary cusps with no masses or vegetations. Mild to moderate aortic regurgitation was noted by color-flow Doppler examination. Mild diffuse hypokinesia of the septum with an LV ejection fraction of 45 to 50% Trace of mitral and tricuspid regurgitation. Intact interatrial septum. No intracardiac masses. Dr James Babb MD FAC (Electronically Signed) Final Date: 02 March 2022 19:58 S
[2022-03-02 10:41] LABS: Glucose Point of Care 124 mg/dL (70-110)
[2022-03-02 10:42] VITALS: BP 159/91; PULSE 68; RESP 18; TEMP 36.3; O2SAT 97
[2022-03-02] MEDS: sodium chloride 0.9% 1,000 ML 30 ML IV (10:56)
--- NOTE | 2022-03-02 11:43 | ANES.PREANE2 ---
Pre-Anesthetic Assessment Height/Weight: Height 1.78 m Weight 136.078 kg Temp Pulse Resp BP Pulse Ox O2 Del Method 97.3 F L 68 18 159/91 97 03/02/22 10:42 03/02/22 10:42 03/02/22 10:42 03/02/22 10:42 03/02/22 10:42 03/02/22 10:42 Preop Diagnosis: Screening colonoscopy Operation Date: 03/02/22 12:00 Proposed Procedures p LIGIA 19666, I33.0, R07.9,E78.2(Not Applicable) - James Babb MD Familial anesthetic complications: none Was Beta Marcella taken within 24 hours: Yes Was Clonidine taken within 24 hours: N/A Last intake: Intake Last Liquid Date 03/01/22 Last Liquid Time 23:59 Last Solid Date 03/01/22 Last Solid Time 19:30 Social Alcohol and No tobacco Exam alert, oriented x 3 and regular rate & rhythm +murmur Airway Submandibular: within normal limits Cervical ROM: within normal limits Mallampati: Class II Dentition: chipped Pulmonary Chronic Obstructive Pulmonary Disease and Sleep Apnea CV/HEM Congestive Heart Failure, Hypertension and Murmur GI Gastroesophageal Reflux Disease Metabolic Diabetes Mellitus, Hyperlipidemia and Morbid Obesity Neuropsych Anxiety, Depression and Neuropathy Anesthetic Plan ASA status: 3 Anesthesia: MAC Medications/Allergies Home Medications Medication Instructions Recorded Confirmed Last Taken Type aspirin 81 mg tablet,delayed 81 mg PO DAILY 10/11/21 03/01/22 02/22/22 History release (Adult Low Dose Aspirin) linaclotide 290 mcg capsule 290 mcg PO DAILY PRN Constipation 10/11/21 03/01/22 02/26/22 History (Linzess) doxycycline hyclate 100 mg tablet 100 mg PO BID PRN tick fever 10/25/21 03/02/22 02/07/22 History empagliflozin 25 mg tablet 25 mg PO DAILY #90 tabs 11/14/21 03/01/22 02/28/22 Rx (Jardiance) gabapentin 100 mg capsule 100 mg PO TID #180 caps 11/14/21 03/01/22 02/28/22 Rx semaglutide 0.25 mg or 0.5 mg (2 0.5 mg (0.4 mL) SUBCUT .weekly #6 11/14/21 03/01/22 02/27/22 Rx mg/1.5 mL) subcutaneous pen mL injector (OzempParkingCarma) albuterol sulfate 90 mcg/actuation 1 inh inhalation QID PRN shortness 11/21/21 03/01/22 02/28/22 Rx aerosol inhaler of breath or wheezing #8.5 grams budesonide-formoterol HFA 80 1 puff inhalation BID #10.2 grams 12/06/21 03/02/22 1 Week Ago Rx mcg-4.5 mcg/actuation aerosol ~02/23/22 inhaler (Symbicort) alprazolam 0.25 mg tablet 0.25 mg PO BID PRN anxiety #60 tabs 01/22/22 03/01/22 03/02/22 06:00 Rx nifedipine 90 mg tablet,extended 90 mg PO DAILY #90 tabs 02/07/22 03/01/22 02/28/22 Rx release 24 hr citalopram 10 mg tablet 20 mg PO DAILY 02/08/22 03/01/22 02/28/22 History glyburide 5 mg tablet 15 mg PO DAILY 02/08/22 03/01/22 02/28/22 History meloxicam 15 mg tablet 15 mg PO DAILY 02/08/22 03/01/22 02/28/22 History omega-3 acid ethyl esters 1 gram 1 cap PO DAILY 02/08/22 03/01/22 02/28/22 History capsule rosuvastatin 5 mg tablet 5 mg PO DAILY 02/08/22 03/01/22 02/28/22 History sitagliptin 50 mg tablet (Januvia) 50 mg PO DAILY 02/08/22 03/01/22 02/28/22 History tamsulosin 0.4 mg capsule 0.8 mg PO DAILY 02/08/22 03/01/22 02/28/22 History telmisartan 40 mg tablet 80 mg PO DAILY 02/08/22 03/01/22 02/28/22 History metformin 1,000 mg tablet 1,000 mg PO BID 02/09/22 03/01/22 02/28/22 History metoprolol succinate 25 mg 25 mg PO DAILY 90 days #90 tabs 02/19/22 03/01/22 02/28/22 Rx tablet,extended release 24 hr tramadol 50 mg tablet 50 mg PO Q12H PRN pain 30 days #60 02/19/22 03/01/22 03/01/22 Rx tabs valacyclovir 1 gram tablet 1,000 mg PO BID 10 days #20 tabs 02/19/22 03/01/22 02/28/22 Rx (Valtrex) furosemide 20 mg tablet 20 mg PO DAILY 03/01/22 03/01/22 02/27/22 History Allergies Allergy/AdvReac Type Severity Reaction Status Date / Time No Known Allergies Allergy Verified 02/24/22 15:02 Current Medications Generic Name Dose Route Start Last Admin Trade Name Windy PRN Reason Stop Dose Admin Sodium Chloride 1,000 mls @ 30 mls/hr 03/02/22 10:30 03/02/22 10:56 Sodium Chloride 0.9% IV 03/03/22 10:29 30 mls/hr .Q24H ALMA DELIA Administration PFSH Anesthesia Medical History Bilateral primary osteoarthritis of knee Chronic pain Depression with anxiety DM type 2 (diabetes mellitus, type 2) Erectile dysfunction Essential hypertension GERD (gastroesophageal reflux disease) Hyperlipidemia Lower respiratory tract infection Mixed hyperlipidemia Peripheral edema Prostate cancer screening Shortness of breath Sleep apnea Could not afford CPAP machine Vitamin D deficiency Family History Father CAD (coronary artery disease), Onset Age: 60 CHF & OR Family/Other Cancer Diabetes Mother Diabetes Denies family history of Clotting disorder Dementia Chronic kidney disease (CKD) Suicide Anesthesia complication Bleeding disorder Lung disease Stroke Social History Smoking and tobacco status: former smoker Quit status (tobacco): has quit using tobacco Year quit tobacco: 40 years ago Former quit date comment: 5-6 cigarettes/day or less Second hand smoke exposure: No Smoking risk assessment/counseling performed?: No Alcohol intake: never Desire information about alcohol rehabilitation?: No Counseling given: No Desire information about substance/drug rehabilitation?: No Counseling given: No Data Anesthesia Cardiac Studies: Echocardiogram 02/14/22 Sestamibi Stress Test (Cardiology) 02/07/22
--- NOTE | 2022-03-02 11:51 | P.HP_ITS ---
Providers/Chief Complaint Admitting Physician: JULIA Babb MD Primary Care Provider: Sourav Cole MD Chief Complaint: Acute and subacute infective endocarditis History of Present Illness Sunshine Charles is a 57 year old male who was initially referred to me for chest pain. This patient has a history of hypertension, dyslipidemia, sleep apnea, type 2 diabetes. He had a Myocardial perfusion imaging which was essentially unremarkable. He had echocardiogram which revealed a normal LV size and ejection fraction. Echodensities were noted on the normal coronary cusp of the aortic valve, suggesting calcifications/healed vegetations. A LIGIA was recommended to better evaluate the aortic valve. He also had mild aortic valve regurgitation. Review of Systems Narrative: CONSTITUTIONAL: No fever or chills. EYES: No blurring of vision or other visual disturbances lately. ENT: No hoarseness of voice, auditory disturbances or sore throat. CARDIOVASCULAR: As mentioned above. RESPIRATORY: No significant cough. GASTROINTESTINAL: No hematemesis or melena. GENITOURINARY: No dysuria or hematuria. INTEGUMENTARY: No skin rashes or history of skin cancer. NEURO: No transient ischemic attacks or amaurosis. PSYCHIATRIC: No history of psychosis or major depression. HEMATOLOGIC: No bleeding disorders or significant anemia. ENDOCRINE: No history of polyuria or polydipsia. MUSCULOSKELETAL: No recent joint pain or swelling. ALLERGY/IMMUNOLOGY: As mentioned above. Medications/Allergies Home Medications Medication Instructions Recorded Confirmed Last Taken Type aspirin 81 mg tablet,delayed 81 mg PO DAILY 10/11/21 03/01/22 02/22/22 History release (Adult Low Dose Aspirin) linaclotide 290 mcg capsule 290 mcg PO DAILY PRN Constipation 10/11/21 03/01/22 02/26/22 History (Linzess) doxycycline hyclate 100 mg tablet 100 mg PO BID PRN tick fever 10/25/21 03/02/22 02/07/22 History empagliflozin 25 mg tablet 25 mg PO DAILY #90 tabs 11/14/21 03/01/22 02/28/22 Rx (Jardiance) gabapentin 100 mg capsule 100 mg PO TID #180 caps 11/14/21 03/01/22 02/28/22 Rx semaglutide 0.25 mg or 0.5 mg (2 0.5 mg (0.4 mL) SUBCUT .weekly #6 11/14/21 03/01/22 02/27/22 Rx mg/1.5 mL) subcutaneous pen mL injector (Ozempic) albuterol sulfate 90 mcg/actuation 1 inh inhalation QID PRN shortness 11/21/21 03/01/22 02/28/22 Rx aerosol inhaler of breath or wheezing #8.5 grams budesonide-formoterol HFA 80 1 puff inhalation BID #10.2 grams 12/06/21 03/02/22 1 Week Ago Rx mcg-4.5 mcg/actuation aerosol ~02/23/22 inhaler (Symbicort) alprazolam 0.25 mg tablet 0.25 mg PO BID PRN anxiety #60 tabs 01/22/22 03/01/22 03/02/22 06:00 Rx nifedipine 90 mg tablet,extended 90 mg PO DAILY #90 tabs 02/07/22 03/01/22 02/28/22 Rx release 24 hr citalopram 10 mg tablet 20 mg PO DAILY 02/08/22 03/01/22 02/28/22 History glyburide 5 mg tablet 15 mg PO DAILY 02/08/22 03/01/22 02/28/22 History meloxicam 15 mg tablet 15 mg PO DAILY 02/08/22 03/01/22 02/28/22 History omega-3 acid ethyl esters 1 gram 1 cap PO DAILY 02/08/22 03/01/22 02/28/22 History capsule rosuvastatin 5 mg tablet 5 mg PO DAILY 02/08/22 03/01/22 02/28/22 History sitagliptin 50 mg tablet (Januvia) 50 mg PO DAILY 02/08/22 03/01/22 02/28/22 History tamsulosin 0.4 mg capsule 0.8 mg PO DAILY 02/08/22 03/01/22 02/28/22 History telmisartan 40 mg tablet 80 mg PO DAILY 02/08/22 03/01/22 02/28/22 History metformin 1,000 mg tablet 1,000 mg PO BID 02/09/22 03/01/22 02/28/22 History metoprolol succinate 25 mg 25 mg PO DAILY 90 days #90 tabs 02/19/22 03/01/22 02/28/22 Rx tablet,extended release 24 hr tramadol 50 mg tablet 50 mg PO Q12H PRN pain 30 days #60 11/28/22 12/08/22 12/08/22 Rx tabs valacyclovir 1 gram tablet 1,000 mg PO BID 10 days #20 tabs 02/19/22 03/01/22 02/28/22 Rx (Valtrex) furosemide 20 mg tablet 20 mg PO DAILY 03/01/22 03/01/22 02/27/22 History Allergies Allergy/AdvReac Type Severity Reaction Status Date / Time No Known Allergies Allergy Verified 02/24/22 15:02 PFSH Acute PFSH: Medical History Bilateral primary osteoarthritis of knee Chronic pain Depression with anxiety DM type 2 (diabetes mellitus, type 2) Erectile dysfunction Essential hypertension GERD (gastroesophageal reflux disease) Hyperlipidemia Lower respiratory tract infection Mixed hyperlipidemia Peripheral edema Prostate cancer screening Shortness of breath Sleep apnea Could not afford CPAP machine Vitamin D deficiency Family History Father CAD (coronary artery disease), Onset Age: 60 CHF & [place] Family/Other Cancer Diabetes Mother Diabetes Denies family history of Clotting disorder Dementia Chronic kidney disease (CKD) Suicide Anesthesia complication Bleeding disorder Lung disease Stroke Social History Smoking and tobacco status: former smoker Quit status (tobacco): has quit using tobacco Year quit tobacco: 40 years ago Former quit date comment: 5-6 cigarettes/day or less Second hand smoke exposure: No Smoking risk assessment/counseling performed?: No Alcohol intake: never Desire information about alcohol rehabilitation?: No Counseling given: No Desire information about substance/drug rehabilitation?: No Counseling given: No Vitals/I&O/Wt Last Vital Signs Temp 97.3 F L 03/02/22 10:42 Pulse 68 03/02/22 10:42 Resp 18 03/02/22 10:42 BP 159/91 03/02/22 10:42 Pulse Ox 97 03/02/22 10:42 O2 Del Method 03/02/22 10:42 Weight last 48 hrs Weight 300 lb Physical Exam Narrative: GENERAL: The patient is alert and oriented times three. Not in any acute distress. HEENT: No significant pallor, icterus or lymphadenopathy.Oral cavity: There are no mucous membrane lesions. NECK: Trachea appears to be central. No masses noted. No JVD or thyromegaly appreciated. RESPIRATORY: Chest is symmetrical. No intercostals muscle retraction or any accessory muscle activation. There is no chest wall tenderness. Breath sounds are heard bilaterally. No rales or rhonchi heard. No evidence of any consolidation. BREASTS: Deferred. HEART: The heart sounds are normal. No S3 or S4. No significant murmurs. No pericardial rub ABDOMEN: No vessel pulsations or distention. No tenderness. No organomegaly appreciated. Bowel sounds are normally heard. : Deferred. RECTAL: Deferred. LYMPHATIC: No lymphadenopathy noted in the neck. EXTREMITIES: No edema or cyanosis. No clubbing. MUSCULOSKELETAL: No acute joint deformities or swelling SKIN: There are no significant rashes or ecchymosis NEUROPSYCHIATRIC: The patient is alert and oriented x3. Appears to be in a good mood. No tremors or rigidity noted. A&P Assessment and plan (1) Calcification of aortic valve: Further evaluation of the evaluation, a LIGIA was recommended. The risk of aspiration, bleeding, soft tissue injury, perforation of the stomach/esophagus and other concomitant complications were explained to the patient in detail. The patient understood this well and consented to proceed . (2) Essential hypertension: (3) Mixed hyperlipidemia: (4) Exertional dyspnea: (5) DM type 2 (diabetes mellitus, type 2): Qualifiers: Diabetes mellitus senior living insulin use: without blacktop paver operator use Diabetes mellitus complication status: without complication Qualified Code(s): E11.9 - Type 2 diabetes mellitus without complications Plan Based on the LIGIA findings, further recommendations will be made Attestations Medical Necessity Statement*: Patient will be discharged home after the LIGIA Coding Level of Care Code Acute Dural Mechanic for [facility] Fwd Exam Expanded Problem Focused Medical Decision Making Low Complexity Diagnoses Calcification of aortic valve I35.9 Essential hypertension I10 Mixed hyperlipidemia E78.2 Exertional dyspnea R06.00 DM type 2 (diabetes mellitus, type 2) E11.9 Diabetes mellitus blacktop paver operator insulin use: without senior living use Diabetes mellitus complication status: without complication
--- NOTE | 2022-03-02 11:57 | W.PM.OPSUD ---
Surgery/Procedure H&P Update DATE OF PROCEDURE: March 02, 2022 DATE H&P PERFORMED: 03/02/22 H&P UPDATE INFORMATION: I have reviewed H&P completed within last 30 days, I have examined patient prior to procedure and No changes to prior documentation PREOP DIAGNOSIS: Screening colonoscopy PRIMARY INDICATION FOR PROCEDURE: Abnormality of the aortic valve PLANNED PROCEDURE: Operation Date: 03/02/22 12:00 Proposed Procedures p LIGIA 94062, I33.0, R07.9,E78.2(Not Applicable) - James Babb MD
[2022-03-02 12:42] VITALS: BP 127/78; PULSE 71; RESP 16; TEMP 36.2; O2SAT 95
[2022-03-02 12:54] VITALS: BP 133/75; PULSE 75; RESP 18; O2SAT 91
--- NOTE | 2022-03-02 15:32 | ANE.PACU2 ---
Inpatient post-anesthesia follow up: Airway intact: Yes Vital signs: Temperature 97.2 F Pulse Rate 75 Respiratory Rate 18 Blood Pressure 133/75 Pulse Oximetry 91 Oxygen Delivery Me thod Room Air Oxygen Flow Rate 6 Fraction of Inspir ed Oxygen Hydration adequate: Yes Nausea and vomiting: No Pain level: 1 Mental status: Baseline
== END 2022-03-02 13:14 | disposition home or self-care (01) ==
PROVIDERS: PCP Family Medicine; Visit Provider Internal Medicine Cardiovascular Disease
PROC: (CPT 93312; principal; 2022-03-02 12:00)
DX: R07.9 Chest pain, unspecified (principal); E78.2 Mixed hyperlipidemia; I33.0 Acute and subacute infective endocarditis; G47.30 Sleep apnea, unspecified; I11.0 Hypertensive heart disease with heart failure; I50.9 Heart failure, unspecified; F41.9 Anxiety disorder, unspecified; E11.40 Type 2 diabetes mellitus with diabetic neuropathy, unspecified; Z79.82 Long term (current) use of aspirin
CPT/HCPCS: 36416; 82962; 93312; 93320; 93325; J2704; J7030

== ENCOUNTER → 2022-05-09 13:48 | Outpatient (BNVA) | payer MEDICARE, SELFPAY | PROVIDERS: PCP Family Medicine; Visit Provider Internal Medicine Cardiovascular Disease | DX: I35.9 Nonrheumatic aortic valve disorder, unspecified (principal); R06.00 Dyspnea, unspecified; I10 Essential (primary) hypertension; E78.2 Mixed hyperlipidemia; R40.0 Somnolence; Z87.891 Personal history of nicotine dependence | CPT/HCPCS: 99214 ==

== ENCOUNTER → 2022-06-05 15:38 | Outpatient (BNVA) | payer MEDICARE, SELFPAY | PROVIDERS: PCP Family Medicine; Visit Provider Family Medicine | DX: R40.0 Somnolence (principal); E11.40 Type 2 diabetes mellitus with diabetic neuropathy, unspecified; I10 Essential (primary) hypertension; E78.2 Mixed hyperlipidemia; E11.9 Type 2 diabetes mellitus without complications | CPT/HCPCS: 80053; 80061; 80307; 81000; 83036; 84443; 85025 ==

== ENCOUNTER → 2022-07-06 09:39 | Outpatient (BNVA) | payer MEDICARE, SELFPAY | PROVIDERS: PCP Family Medicine; Visit Provider Nurse Practitioner Family | DX: I10 Essential (primary) hypertension (principal); Z87.891 Personal history of nicotine dependence; Z79.82 Long term (current) use of aspirin | CPT/HCPCS: 99213 ==

== ENCOUNTER 2022-07-11 05:14 | Outpatient (CLI) | payer MEDICARE, SELFPAY | END 2022-07-11 05:15 | disposition home or self-care (01) | LOC: SLEEP 07-12 05:15 | PROVIDERS: PCP Family Medicine; Visit Provider Internal Medicine Cardiovascular Disease | DX: G47.33 Obstructive sleep apnea (adult) (pediatric) (principal); R09.02 Hypoxemia | CPT/HCPCS: 95810 ==

== ENCOUNTER 2022-09-13 14:00 | Outpatient (CLI) | payer MEDICARE, SELFPAY ==
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
== END 2022-09-13 14:01 | disposition home or self-care (01) ==
PROVIDERS: PCP Family Medicine; Visit Provider Nurse Practitioner
DX: R06.00 Dyspnea, unspecified (principal); M79.89 Other specified soft tissue disorders
CPT/HCPCS: 93971

== ENCOUNTER 2023-02-11 20:00 | Outpatient (CLI) | payer MEDICARE, SELFPAY | END 2023-02-11 20:01 | disposition home or self-care (01) | LOC: SLEEP 02-12 05:31 | PROVIDERS: PCP Family Medicine; Visit Provider Family Medicine | DX: G47.33 Obstructive sleep apnea (adult) (pediatric) (principal) | CPT/HCPCS: 95811 ==

== ENCOUNTER → 2023-03-26 10:26 | Outpatient (BNVA) | payer MEDICARE, SELFPAY | PROVIDERS: PCP Nurse Practitioner Family; Visit Provider Nurse Practitioner Family | DX: I10 Essential (primary) hypertension (principal); E78.2 Mixed hyperlipidemia; E55.9 Vitamin D deficiency, unspecified; E10.42 Type 1 diabetes mellitus with diabetic polyneuropathy; E78.5 Hyperlipidemia, unspecified; Z12.5 Encounter for screening for malignant neoplasm of prostate | CPT/HCPCS: 80053; 80061; 81003; 82306; 83036; 84443; 85025; G0103 ==

== ENCOUNTER 2023-03-28 11:51 | Outpatient (CLI) | payer MEDICARE, SELFPAY ==
--- NOTE | 2023-03-28 12:07 | XR_ITS ---
WS: [id number] Left ankle, 3 views, 03/28/2023 Clinical Data: M19.072 - Primary osteoarthritis, left ankle and foot Comparison: Left leg, 10/25/2021 Findings: No fractures or dislocations are seen. The ankle mortise is normal. The talus and calcaneus are unrem arkable. No soft tissue swelling over the medial or lateral malleolus is seen. There is a small plantar spur. Impression: Negative left ankle.
--- NOTE | 2023-03-28 12:30 | USCV_ITS ---
Sunshine Charles Age: 58 Gender: M : 1965 Exam Date: 03/28/2023 13:21 Ordering Phys: OBIE Hines APRN Technologist: Sushant Hess [place]am [place] [facility] [place] Indication: Neuropathy RIGHT LEFT Brachial 146.00 mmHg Brachial 154.00 mmHg Pressure (mmHg) Waveform Pressure (mmHg) Waveform 196.00 DUPLICATOR PUNCH OPERATOR 178.00 184.00 DPA 176.00 1.27 Ankle/Brachial Index 1.16 176.00 Pre-Exercise Toe Pressure 177.00 1.14 Pre-Exercise Toe/Brachial Index 1.15 FINDINGS Resting ARABELLA 1.27 on the right side and 1.16 on the left Resting TBI of 1.14 on the right and 1.15 on the left CONCLUSIONS Normal resting ABIs and TBIs bilaterally. No evidence of any significant arterial obstruction, based on the above findings. Dr James Babb MD [facility] (Electronically Signed) Final Date: 28 March 2023 17:34 S
== END 2023-03-28 11:52 | disposition home or self-care (01) ==
LOC: RAD 11:56
PROVIDERS: PCP Family Medicine; Visit Provider Nurse Practitioner Family
DX: E11.51 Type 2 diabetes mellitus with diabetic peripheral angiopathy without gangrene (principal); E11.40 Type 2 diabetes mellitus with diabetic neuropathy, unspecified; M19.072 Primary osteoarthritis, left ankle and foot; M79.89 Other specified soft tissue disorders; Z87.828 Personal history of other (healed) physical injury and trauma
CPT/HCPCS: 73610; 93922

== ENCOUNTER 2023-04-16 15:34 | Outpatient (CLI) | payer MEDICARE, SELFPAY | END 2023-04-16 15:35 | disposition home or self-care (01) | LOC: SPT 15:36 | PROVIDERS: PCP Family Medicine; Visit Provider Podiatrist Foot & Ankle Surgery | DX: E11.42 Type 2 diabetes mellitus with diabetic polyneuropathy (principal); M21.41 Flat foot [pes planus] (acquired), right foot; M21.42 Flat foot [pes planus] (acquired), left foot; M65.872 Other synovitis and tenosynovitis, left ankle and foot; M20.21 Hallux rigidus, right foot; M20.22 Hallux rigidus, left foot | CPT/HCPCS: 97760; 99213; L1902 ==

== ENCOUNTER → 2023-06-12 09:37 | Outpatient (BNVA) | payer MEDICARE, SELFPAY | PROVIDERS: PCP Nurse Practitioner Family; Visit Provider Podiatrist Foot & Ankle Surgery | DX: M25.572 Pain in left ankle and joints of left foot (principal); E11.42 Type 2 diabetes mellitus with diabetic polyneuropathy; M65.872 Other synovitis and tenosynovitis, left ankle and foot; Z79.84 Long term (current) use of oral hypoglycemic drugs | CPT/HCPCS: 99213 ==

== ENCOUNTER → 2023-08-05 14:06 | Outpatient (BNVA) | payer MEDICARE, SELFPAY | PROVIDERS: PCP Nurse Practitioner Family; Referring Provider Nurse Practitioner Family; Visit Provider Surgery | DX: K40.20 Bilateral inguinal hernia, without obstruction or gangrene, not specified as recurrent (principal) | CPT/HCPCS: 99204; 99214 ==

== ENCOUNTER 2023-08-20 06:50 | Day surgery (SDC) | payer MEDICARE, SELFPAY ==
[2023-08-20] VITALS (14 sets, daily range): BP systolic 88–143; BP diastolic 50–82; PULSE 57–73; RESP 12–24; TEMP 36.1–36.4; O2SAT 91–96; BMI 41.0
--- NOTE | 2023-08-20 06:57 | W.PM.OPSUD ---
Surgery/Procedure H&P Update DATE OF PROCEDURE: August 20, 2023 DATE H&P PERFORMED: 08/05/23 H&P UPDATE INFORMATION: I have reviewed H&P completed within last 30 days, I have examined patient prior to procedure and No changes to prior documentation PLANNED PROCEDURE: Operation Date: 08/20/23 08:25 Proposed Procedures p Laparoscopic Inguinal Hernia Repair w/Mesh(Bilateral) - Albert Tran DO
--- NOTE | 2023-08-20 07:30 | ANES.PREANE2 ---
Pre-Anesthetic Assessment Height/Weight: Height 1.78 m Weight 129.742 kg Temp Pulse Resp BP Pulse Ox O2 Del Method 97.0 F L 73 17 143/79 96 Room Air 08/20/23 07:13 08/20/23 07:13 08/20/23 07:13 08/20/23 07:13 08/20/23 07:13 08/20/23 07:18 Operation Date: 08/20/23 08:25 Proposed Procedures p Laparoscopic Inguinal Hernia Repair w/Mesh(Bilateral) - Albert Tran DO Familial anesthetic complications: None Was Beta Marcella taken within 24 hours: N/A Was Clonidine taken within 24 hours: N/A Last intake: Intake Last Liquid Date 08/19/23 Last Liquid Time 23:30 Last Solid Date 08/19/23 Last Solid Time 17:00 Social No alcohol and No tobacco Exam alert, oriented x 3, clear to auscultation bilaterally and regular rate & rhythm Airway Mallampati: Class IV Dentition: other (multiple gone in front (poor dentition)) Pulmonary Sleep Apnea CV/HEM 2021 Perfusion scan IMPRESSIONS 1. Myocardial perfusion imaging revealing moderate area of persistent decreased tracer uptake in the inferior, inferolateral and apical lateral regions, suggestive of myocardial scarring. 2. Moderately diminished LV ejection fraction of 35%. 3. LV wall motion analysis revealing diffuse hypokinesia of the left ventricle 4. Moderately dilated LV cavity with an end-systolic volume of 140 mL No similar previous studies are available for comparison No significant coronary ischemia, based on the above findings 2021 LIGIA CONCLUSIONS The aortic valve was found to be tricuspid with thickening of the leaflet margins mostly involving the left coronary and the noncoronary cusps with no masses or vegetations. Mild to moderate aortic regurgitation was noted by color-flow Doppler examination. Mild diffuse hypokinesia of the septum with an LV ejection fraction of 45 to 50% Trace of mitral and tricuspid regurgitation. Intact interatrial septum. No intracardiac masses. 2021 sestamibi CONCLUSION: 1. No significant EKG changes with the LexiScan infusion 2. No LexiScan induced chest pain or cardiac arrhythmia 3. Normal blood pressure and heart rate response 4. Sestamibi/sestamibi perfusion scan pending; see separate report. Metabolic Diabetes Mellitus and Morbid Obesity Anesthetic Plan ASA status: 3 Anesthesia: General Risk of > 500 ml blood loss (7ml/kg in children): No Medications/Allergies Home Medications Medication Instructions Recorded Confirmed Last Taken Type aspirin 81 mg tablet,delayed 81 mg PO DAILY 10/11/21 08/16/23 08/19/23 History release (Adult Low Dose Aspirin) linaclotide 290 mcg capsule 290 mcg PO DAILY PRN Constipation 10/11/21 08/16/23 08/16/23 History (Linzess) omega-3 acid ethyl esters 1 gram 1 cap PO DAILY #90 caps 05/01/22 08/16/23 08/19/23 Rx capsule citalopram 10 mg tablet 20 mg (2 x 10 mg) PO DAILY 90 days 09/26/22 08/16/23 08/19/23 Rx #180 tabs albuterol sulfate 90 mcg/actuation 1 inh inhalation QID PRN shortness 11/20/22 08/16/23 08/16/23 Rx aerosol inhaler of breath or wheezing #8.[address] #1 ea 03/07/23 08/16/23 Unknown Rx cpap #1 ea 03/28/23 08/16/23 Unknown Rx canagliflozin 100 mg tablet 100 mg PO DAILY 03/31/23 08/16/23 08/19/23 History (Invokana) ASO to left #1 ea 04/16/23 08/16/23 Unknown Rx Diabetic shoes with 3 sets of #1 ea 04/16/23 08/16/23 Unknown Rx insoles furosemide 20 mg tablet 20 mg PO DAILY #90 tabs 04/24/23 08/16/23 08/19/23 Rx gabapentin 300 mg capsule 300 mg PO BID 90 days #180 caps 05/17/23 08/16/23 08/19/23 Rx pen needle, diabetic 31 gauge x #100 ea 05/17/23 08/16/23 Unknown Rx 5/16 (BD Ultra-Fine Short Pen Needle) meloxicam 15 mg tablet 15 mg PO DAILY 30 days #30 tabs 06/12/23 08/16/23 08/19/23 Rx alprazolam 0.25 mg tablet 0.25 mg PO BID PRN anxiety #60 tabs 07/03/23 08/16/23 08/19/23 Rx tamsulosin 0.4 mg capsule 0.8 mg (2 x 0.4 mg) PO DAILY 90 07/10/23 08/16/23 08/19/23 Rx days #180 caps tirzepatide 5 mg/0.5 mL 5 mg SUBCUT ONCE 08/05/23 08/16/23 08/13/23 History subcutaneous pen injector (Annalisa) tramadol 50 mg tablet 50 mg PO Q12H PRN pain 30 days #60 08/14/23 08/16/23 08/19/23 Rx tabs metformin 1,000 mg tablet 1,000 mg PO BID 08/16/23 08/16/23 08/19/23 History metoprolol succinate 25 mg 25 mg PO DAILY 08/16/23 08/16/23 08/20/23 History tablet,extended release 24 hr nifedipine 90 mg tablet,extended 90 mg PO DAILY 08/16/23 08/16/23 08/20/23 History release 24 hr rosuvastatin 5 mg tablet 5 mg PO DAILY 08/16/23 08/16/23 08/19/23 History telmisartan 40 mg tablet 80 mg PO DAILY 08/16/23 08/16/23 08/19/23 History Allergies Allergy/AdvReac Type Severity Reaction Status Date / Time No Known Allergies Allergy Verified 08/16/23 08:55 PFS Anesthesia Medical History Chronic pain of left ankle Arthritis of ankle, left Acute bacterial sinusitis Tricuspid but functionally bicuspid aortic valve Former smoker AR (aortic regurgitation) Diverticulosis large intestine w/o perforation or abscess w/bleeding Bilateral primary osteoarthritis of knee Encounter for screening colonoscopy Hyperlipidemia Peripheral edema Prostate cancer screening Shortness of breath Lower respiratory tract infection Chronic pain Mixed hyperlipidemia GERD (gastroesophageal reflux disease) Sleep apnea Could not afford CPAP machine Vitamin D deficiency Erectile dysfunction Depression with anxiety Essential hypertension DM type 2 (diabetes mellitus, type 2) Surgical History Hx of umbilical hernia repair Hx of colonoscopy Family History Father CAD (coronary artery disease), Onset Age: 60 CHF & [place] Family/Other Cancer Diabetes Mother Diabetes Denies family history of Clotting disorder Dementia Chronic kidney disease (CKD) Suicide Anesthesia complication Bleeding disorder Lung disease Stroke Social History Smoking and tobacco/nicotine status: former use of tobacco/nicotine Quit status (tobacco/nicotine): has quit using Year quit tobacco: 40 years ago Former quit date comment: 5-6 cigarettes/day or less Second hand smoke exposure: No Alcohol intake: never Substance/Drug Use: never Data Anesthesia Cardiac Studies: Echocardiogram 02/14/22 Transesophageal Echocardiogram 03/02/22 Sestamibi Stress Test (Cardiology) 02/07/22
[2023-08-20] MEDS: sodium chloride 0.9% 1,000 ML 30 ML IV (07:46)
[2023-08-20 07:47] LABS: Glucose Point of Care 152 mg/dL (70-110)
[2023-08-20] MEDS: ceFAZolin 3,000 MG in sodium chloride 0.9% (plus) 100 ML 200 MG IV (07:51)
[2023-08-20] MEDS: lidocaine-epi 1% 20 mL INJ 10 ML INJECTION (08:36)
--- NOTE | 2023-08-20 09:12 | P.OP_ITS ---
Operative Report Date of procedure: August 20, 2023 Surgeon: Albert Tran DO Brief History: This is a very pleasant 58-year-old gentleman who presented my office with left- sided groin pain. Examination revealed bilateral inguinal hernias. Laparoscopic repair of right inguinal hernia with mesh and laparoscopic repair of left inguinal hernia with mesh was indicated. The risks and benefits were explained and documented. Procedure: Pre-op diagnosis: Bilateral inguinal hernias Post-op diagnosis: Bilateral indirect inguinal hernias Right cord lipoma Procedure done: Laparoscopic (TEPP) repair of left inguinal hernia with mesh Laparoscopic (TEPP) repair of right inguinal hernia with mesh Excision of right sided cord lipoma Implants: Left and right extra-large 3D max Bard meshes Specimens removed/disposition: None Surgeon: Albert Tran DO Anesthesia: General and Local Estimated blood loss (mL): 5 Complications: None apparent Patient was wheeled into the operative room and placed on the OR table in a supine position. Abdomen was inspected prepped and draped in usual sterile fashion. Time-out was performed and all present were in agreement. A 15 blade scalpel was used to make 1.2 centimeter incision infraumbilically. Combination of sharp and blunt dissection was performed down to the anterior rectus sheath which was opened sharply. The dissecting balloon was then inserted into the space of Retzius and blown up. We put the camera into the port and identified that we were in the correct space. I then placed 2 5 millimeter trocars suprapubically in the midline. I then used endokitners to bluntly dissect in the space of Retzius out laterally. An indirect inguinal hernia was identified on the right. Blunt dissection was performed to dissect down the hernia sac until the vas deferens dove medially. There was a large right-sided cord lipoma that was taken down bluntly. A small amount of bleeding was encountered and controlled with electrocautery via the [place] dissector. An extra-large 3D max Bard right inguinal mesh was then placed into the space of Retzius. The mesh was unrolled and tacked once medially at the pubic bone. The mesh laid out nicely over the spermatic cord. The hernia sac and cord lipoma were placed proximal to the mesh. An indirect inguinal hernia was identified on the left. Blunt dissection was performed to dissect down the hernia sac until the vas deferens dove medially. An extra-large 3D max Bard left inguinal mesh was then placed into the space of Retzius. The mesh was unrolled and tacked once medially at the pubic bone. The mesh laid out nicely over the spermatic cord. Hernia sacs were held underneath the meshes as the insufflation was released. Incisions were closed with 4 O Vicryl in a subcuticular interrupted fashion. Skin glue was applied. Patient tolerated the procedure well.
[2023-08-20] MEDS: fentaNYL 50 mcg/mL INJ 2mL IVP (09:43)
[2023-08-20] MEDS: HYDROcodone-acetaminophen 7.5-325 mg Tablet 1 TAB PO (10:11)
--- NOTE | 2023-08-20 11:25 | ANE.PACU2 ---
Inpatient post-anesthesia follow up: Airway intact: Yes Vital signs: Temperature 97.6 F Pulse Rate 63 Respiratory Rate 17 Blood Pressure 132/80 Pulse Oximetry 96 Oxygen Delivery Me thod Room Air Oxygen Flow Rate 5 Fraction of Inspir ed Oxygen Hydration adequate: Yes Nausea and vomiting: No Pain level: 1 Mental status: Baseline
== END 2023-08-20 11:15 | disposition home or self-care (01) ==
PROVIDERS: PCP Nurse Practitioner Family; Visit Provider Surgery
PROC: (CPT 49650; principal; 2023-08-20 08:15)
DX: K40.20 Bilateral inguinal hernia, without obstruction or gangrene, not specified as recurrent (principal); D17.6 Benign lipomatous neoplasm of spermatic cord; G47.30 Sleep apnea, unspecified; E11.9 Type 2 diabetes mellitus without complications; E66.01 Morbid (severe) obesity due to excess calories; Z68.41 Body mass index [BMI] 40.0-44.9, adult; Z79.82 Long term (current) use of aspirin; E78.2 Mixed hyperlipidemia; Z87.891 Personal history of nicotine dependence
CPT/HCPCS: 49650; 36416; 51702; 82962; C1781; J0131; J0330; J0690; J1100; J2371; J2405; J2704; J3010; J3490; J7030

== ENCOUNTER → 2023-09-02 12:56 | Outpatient (BNVA) | payer MEDICARE, SELFPAY | PROVIDERS: PCP Nurse Practitioner Family; Visit Provider Surgery | DX: Z98.890 Other specified postprocedural states (principal); Z87.19 Personal history of other diseases of the digestive system; E11.42 Type 2 diabetes mellitus with diabetic polyneuropathy; M65.872 Other synovitis and tenosynovitis, left ankle and foot; Z79.84 Long term (current) use of oral hypoglycemic drugs | CPT/HCPCS: 99024; 99213 ==

== ENCOUNTER → 2023-11-14 10:37 | Outpatient (BNVA) | payer MEDICARE, SELFPAY | PROVIDERS: PCP Nurse Practitioner Family; Visit Provider Nurse Practitioner Family | DX: E11.9 Type 2 diabetes mellitus without complications (principal) | CPT/HCPCS: 80053; 81003; 83036; 85025 ==

== ENCOUNTER 2023-12-16 14:59 | Outpatient (CLI) | payer MEDICARE, SELFPAY ==
--- NOTE | 2023-12-16 15:15 | US_ITS ---
WS: [id number] TESTICULAR ULTRASOUND HISTORY: N50.89 - Other specified disorders of the male genital or... COMPARISON: None available. TECHNIQUE: Real-time and color Doppler imaging or utilized to perform a testicular ultrasound. Right testicle: 5.1 cm x 3.6 cm x 2.8 cm. Normal size and echogenicity. No mass or torsion. Normal color Doppler is present throughout. Systolic and diastolic velocities are both present. Large RIGHT hydrocele with low-level echoes. Right epididymis: Spermatocele in the RIGHT epididymal head measures 0.8 x 0.8 x 0.9 cm. No increased vascularity. Left testicle: 4.1 cm x 3.4 cm x 2.9 cm. Normal size and echogenicity. No mass or torsion. Normal color Doppler is present throughout. Systolic and diastolic velocities are both present. No significant hydrocele. Left epididymis: Normal epididymis with no increased vascularity. US/US scrotum [id number] IMPRESSION: 1. No testicular mass or torsion. 2. Large mildly complex RIGHT hydrocele.
== END 2023-12-16 15:00 | disposition home or self-care (01) ==
LOC: RAD 14:59
PROVIDERS: PCP Nurse Practitioner Family; Visit Provider Nurse Practitioner Family
DX: N50.89 Other specified disorders of the male genital organs (principal); N43.2 Other hydrocele
CPT/HCPCS: 76870; 80053; 81003; 83036; 85025

== ENCOUNTER → 2023-12-31 09:12 | Outpatient (BNVA) | payer MEDICARE, SELFPAY | PROVIDERS: PCP Nurse Practitioner Family; Visit Provider Nurse Practitioner Family | DX: D49.2 Neoplasm of unspecified behavior of bone, soft tissue, and skin (principal) | CPT/HCPCS: 88304 ==

== ENCOUNTER → 2024-04-01 13:41 | Outpatient (BNVA) | payer MEDICARE, SELFPAY | PROVIDERS: PCP Nurse Practitioner Family; Visit Provider Podiatrist Foot & Ankle Surgery | DX: E11.42 Type 2 diabetes mellitus with diabetic polyneuropathy (principal); M21.41 Flat foot [pes planus] (acquired), right foot; M21.42 Flat foot [pes planus] (acquired), left foot; M20.21 Hallux rigidus, right foot; M20.22 Hallux rigidus, left foot; Z79.84 Long term (current) use of oral hypoglycemic drugs | CPT/HCPCS: 99213 ==

== ENCOUNTER → 2024-06-04 10:22 | Outpatient (BNVA) | payer MEDICARE, SELFPAY | PROVIDERS: PCP Nurse Practitioner Family; Visit Provider Family Medicine | DX: I10 Essential (primary) hypertension (principal); E78.2 Mixed hyperlipidemia; E11.9 Type 2 diabetes mellitus without complications | CPT/HCPCS: 80053; 80061; 83036; 85025 ==

== ENCOUNTER → 2025-02-04 09:42 | Outpatient (BNVA) | payer MEDICARE, SELFPAY | PROVIDERS: PCP Nurse Practitioner Family; Visit Provider Nurse Practitioner Family | DX: E11.9 Type 2 diabetes mellitus without complications (principal); I10 Essential (primary) hypertension | CPT/HCPCS: 80053; 80061; 81000; 82043; 83036; 85025 ==